=== PATIENT | male | born 2005 | race Caucasian/White ===

== ENCOUNTER 2025-08-27 06:25 | Emergency (ER) | payer SELFPAY ==
[2025-08-27] MEDS ORDERED: Ketorolac Tromethamine 30 MG (1 mL) VIAL ONE (06:28)
[2025-08-27] MEDS ORDERED: Ondansetron PF 4 MG/2 ML Vial ONE (06:28)
== END 2025-08-27 07:07 | disposition home or self-care (01) ==
LOC: CSHERS 06:25
DX: M62.830 Muscle spasm of back (principal); M54.50 Low back pain, unspecified
CPT/HCPCS: 96372; 99283; J1885